=== PATIENT | male | born 1955 | race Caucasian/White ===

== ENCOUNTER 2024-09-04 11:52 | Inpatient (IN) | payer OTHER, SELFPAY ==
[2024-09-04] VITALS (20 sets, daily range): BP systolic 71–172; BP diastolic 60–92; BMI 26.7
--- NOTE | 2024-09-04 09:47 | ED.GENMED ---
History of Present Illness
<Nancy Johnson PA-C - Last Filed: 09/04/24 12:07>
General
Chief Complaint: Chest Pain
Source: patient
Exam Limitations: none
Time Seen by Provider: 09/04/24 09:39
History of Present Illness
History of Present Illness:
69yoM with no reported past medical history presenting for evaluation of chest pain. Patient has been having intermittent substernal chest pain over the past 2 days. Pain is described as burning. He had some worsening discomfort around 1 AM this
morning and checked in at [place] but ultimately left without being seen due to long wait times. An EKG was not performed. His pain became constant about 30 minutes prior to arrival while he was driving to his grandson's baseball game. He also
reports nausea, tingling in both of his arms, and diaphoresis. Patient was told that his cholesterol was borderline on his recent blood work. He does not take any prescription medications and denies any tobacco use. No prior history of heart
disease.
Past History
<Nancy Johnson PA-C - Last Filed: 09/04/24 12:07>
Past History
ED Past Medical History: Other (Sciatica)
ED Past Surgical History: None
Social History
Tobacco: Non-smoker
Alcohol: Occasional
Personal:
Living: with family
Phy Exam
<Nancy Johnson PA-C - Last Filed: 09/04/24 12:07>
General Physical Exam
General Presentation: moderate distress
General Skin: warm and diaphoretic
General Habitus: normal
General Mental: alert
ENT Exam
ENT Exam: normocephalic
Cardiovascular Exam
Cardiovascular Exam: regular rate/rhythm and normal peripheral pulses (2+ PT pulses bilaterally)
Pulmonary Exam
Pulmonary Exam: lungs clear, no respiratory distress, no rales, no crackles and no rhonchi
Neurological Exam
Neurological Exam: alert
[place] Coma Scale
Eye Opening: Spontaneous
Verbal Response: Oriented
Motor Response: Obeys Commands
GCS Total Score: 15
Skin Exam
Skin Exam: normal color and diaphoresis
Scores
<Nancy Johnson PA-C - Last Filed: 09/04/24 12:07>
Heart Score for Chest Pain Patients
STEMI patient?: Yes
Course
<Nancy Johnson PA-C - Last Filed: 09/04/24 12:07>
Orders/Labs/Results
Orders:
Orders
09/04/24 09:29
EKG [Electrocardiogram (*1)] Urgent
Reason for Study: Chest Pain
09/04/24 09:30
EKG- Treatment ONCE
09/04/24 09:45
Aspirin Chewable [Low Strength Aspirin] 324 mg PO NOW STA
09/04/24 09:46
Cardiac Monitoring- Treatment ONCE
CR Chest Portable - 1 View Urgent
Comment:
Reason For Exam: CP
Reason Study Needs to be Portable: Unable to Transport
09/04/24 09:47
Heparin 4,000 units IV NOW STA
Ticagrelor [Brilinta] 180 mg PO ONCE ONE
09/04/24 09:50
Heparin 5,000 units IV NOW STA
09/04/24 09:53
Complete Blood Count/With Diff Urgent
Comprehensive Metabolic Panel Urgent
NT-proBNP Urgent
PTT Urgent
Prothrombin Time Urgent
Troponin I Urgent
09/04/24 09:57
Ondansetron Injectable [Zofran] 4 mg .ROUTE .STK-MED ONE
09/04/24 09:58
NORepinephrine 4 MG/250 ML [Levophed] 4 mg in 250 ml .ROUTE .STK-MED
09/04/24 10:00
0.9% Sodium Chloride 1000 ml [Nss] 1,000 ml IV BOLUS
Ondansetron Injectable [Zofran] 4 mg IV NOW STA
09/04/24 10:09
Fentanyl Citrate/Pf [Sublimaze] 50 mcg IV NOW STA
09/04/24 10:14
Heparin 1000 Units/500 ml [Heparin] 1,000 units in 500 ml .ROUTE .STK-MED
Heparin Sodium,Porcine/Ns/Pf [Heparin 2000 Units/1000 ml] 2,000 unit in 1,000 ml .ROUTE .STK-MED
Lidocaine HCl/Pf [Xylocaine-Mpf 1% Vial] 100 mg .ROUTE .STK-MED ONE
Nitroglycerin [Tridil] 1,500 mcg .ROUTE .STK-MED ONE
Verapamil Injectable [Isoptin/Verapamil Injection] 5 mg .ROUTE .STK-MED ONE
09/04/24 10:18
Fentanyl Citrate/Pf [Sublimaze] 100 mcg .ROUTE .STK-MED ONE
Heparin 10,000 units .ROUTE .STK-MED ONE
Midazolam HCl [Versed] 2 mg .ROUTE .STK-MED ONE
09/04/24 10:58
Fentanyl Citrate/Pf [Sublimaze] 100 mcg .ROUTE .STK-MED ONE
09/04/24 11:01
Midazolam HCl [Versed] 2 mg .ROUTE .STK-MED ONE
09/04/24 11:04
Morphine Sulfate 2 mg .ROUTE .STK-MED ONE
09/04/24 11:10
Eptifibatide [Integrilin] 30 ml .ROUTE .STK-MED
09/04/24 11:11
EPTIFIBATIDE 75 mg/100 mL [Integrilin] 75,000 mcg in 100 ml .ROUTE .STK-MED
09/04/24 11:13
EPTIFIBATIDE 75 mg/100 mL [Integrilin] 75,000 mcg in 100 ml .ROUTE .STK-MED
Abnormal Lab Results
09/04/24 09/04/24 09/04/24
09:53 10:41 11:18
RBC 4.57 L 10^6/uL
(4.70-6.10)
MCV 97.4 H fL
(80.0-94.0)
MCH 33.9 H pg
(27.0-31.0)
Glucose 138 H mg/dl
(70-99)
Total Bilirubin 1.7 H mg/dl
(0.2-1.3)
Troponin I 0.263 H* ng/ml
POC ACT Low Range 276 H Seconds 300 H Seconds
(116-155) (116-155)
09/04/24 09:53
09/04/24 09:53
Vital Signs
Initial and Last Documented VS:
Initial Vital Signs
Temp Pulse Resp BP Pulse Ox
98.2 F 52 16 138/65 98
09/04/24 09:36 09/04/24 09:36 09/04/24 09:36 09/04/24 09:36 09/04/24 09:36
Last Documented Vital Signs
Temp Pulse Resp BP Pulse Ox
98.2 F 55 18 157/67 98
09/04/24 09:36 09/04/24 10:48 09/04/24 10:48 09/04/24 10:48 09/04/24 10:48
<Emiliano Garcia, DO - Last Filed: 09/04/24 10:05>
Orders/Labs/Results
Orders:
Orders
09/04/24 09:29
EKG [Electrocardiogram (*1)] Urgent
Reason for Study: Chest Pain
09/04/24 09:30
EKG- Treatment ONCE
09/04/24 09:45
Aspirin Chewable [Low Strength Aspirin] 324 mg PO NOW STA
09/04/24 09:46
Cardiac Monitoring- Treatment ONCE
CR Chest Portable - 1 View Urgent
Comment:
Reason For Exam: CP
Reason Study Needs to be Portable: Unable to Transport
09/04/24 09:47
Heparin 4,000 units IV NOW STA
Ticagrelor [Brilinta] 180 mg PO ONCE ONE
09/04/24 09:50
Heparin 5,000 units IV NOW STA
09/04/24 09:53
Complete Blood Count/With Diff Urgent
Comprehensive Metabolic Panel Urgent
NT-proBNP Urgent
PTT Urgent
Prothrombin Time Urgent
Troponin I Urgent
09/04/24 09:57
Ondansetron Injectable [Zofran] 4 mg .ROUTE .STK-MED ONE
09/04/24 09:58
NORepinephrine 4 MG/250 ML [Levophed] 4 mg in 250 ml .ROUTE .STK-MED
09/04/24 10:00
0.9% Sodium Chloride 1000 ml [Nss] 1,000 ml IV BOLUS
Ondansetron Injectable [Zofran] 4 mg IV NOW STA
09/04/24 10:09
Fentanyl Citrate/Pf [Sublimaze] 50 mcg IV NOW STA
09/04/24 10:14
Heparin 1000 Units/500 ml [Heparin] 1,000 units in 500 ml .ROUTE .STK-MED
Heparin Sodium,Porcine/Ns/Pf [Heparin 2000 Units/1000 ml] 2,000 unit in 1,000 ml .ROUTE .STK-MED
Lidocaine HCl/Pf [Xylocaine-Mpf 1% Vial] 100 mg .ROUTE .STK-MED ONE
Nitroglycerin [Tridil] 1,500 mcg .ROUTE .STK-MED ONE
Verapamil Injectable [Isoptin/Verapamil Injection] 5 mg .ROUTE .STK-MED ONE
09/04/24 10:18
Fentanyl Citrate/Pf [Sublimaze] 100 mcg .ROUTE .STK-MED ONE
Heparin 10,000 units .ROUTE .STK-MED ONE
Midazolam HCl [Versed] 2 mg .ROUTE .STK-MED ONE
09/04/24 10:58
Fentanyl Citrate/Pf [Sublimaze] 100 mcg .ROUTE .STK-MED ONE
09/04/24 11:01
Midazolam HCl [Versed] 2 mg .ROUTE .STK-MED ONE
09/04/24 11:04
Morphine Sulfate 2 mg .ROUTE .STK-MED ONE
09/04/24 11:10
Eptifibatide [Integrilin] 30 ml .ROUTE .STK-MED
09/04/24 11:11
EPTIFIBATIDE 75 mg/100 mL [Integrilin] 75,000 mcg in 100 ml .ROUTE .STK-MED
09/04/24 11:13
EPTIFIBATIDE 75 mg/100 mL [Integrilin] 75,000 mcg in 100 ml .ROUTE .STK-MED
Abnormal Lab Results
09/04/24 09/04/24 09/04/24
09:53 10:41 11:18
RBC 4.57 L 10^6/uL
(4.70-6.10)
MCV 97.4 H fL
(80.0-94.0)
MCH 33.9 H pg
(27.0-31.0)
Glucose 138 H mg/dl
(70-99)
Total Bilirubin 1.7 H mg/dl
(0.2-1.3)
Troponin I 0.263 H* ng/ml
POC ACT Low Range 276 H Seconds 300 H Seconds
(116-155) (116-155)
09/04/24 09:53
09/04/24 09:53
Vital Signs
Initial and Last Documented VS:
Initial Vital Signs
Temp Pulse Resp BP Pulse Ox
98.2 F 52 16 138/65 98
09/04/24 09:36 09/04/24 09:36 09/04/24 09:36 09/04/24 09:36 09/04/24 09:36
Last Documented Vital Signs
Temp Pulse Resp BP Pulse Ox
98.2 F 55 18 157/67 98
09/04/24 09:36 09/04/24 10:48 09/04/24 10:48 09/04/24 10:48 09/04/24 10:48
<Nancy Johnson PA-C - Last Filed: 09/04/24 12:07>
MDM/Problems Addressed
Differential Diagnosis Includes:
69yoM here with chest pain. 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 Associated with nausea. Appears diaphoretic on exam. VSS. Exam is otherwise reassuring with equal PT pulses bilaterally. Differential diagnosis
includes but is not limited to: ACS, angina, GERD, PE, consider aortic dissection
EKG obtained in triage shows ST elevations in inferior leads. EKG sent to interventional cardiology for review and STEMI alert activated. Labs, CXR, aspirin, Brilinta, and heparin ordered per protocol.
<Nancy Johnson PA-C - Last Filed: 09/04/24 12:07>
*EKG
Interpreted by ED Provider?: Yes
EKG Intrepretation Date: 09/04/24
Heart Rate: 53
Rate: bradycardiac
Rhythm: sinus
[place]: normal axis
Interval: normal interval
Ischemia: ST elevation (II, III, aVF)
*Critical Care Note
Total Time (30-74mins, 75-104mins- exclusive of procedures): 35
<Nancy Johnson PA-C - Last Filed: 09/04/24 12:07>
Update Note
Update Note:
Troponin elevated at 0.26. CXR is clear. Patient vomited during ED stay and transiently became hypotension. IV fluids started with improvement. HR in the 40-50 range. Daughter at bedside updated on care plan. Patient transported to solder making laborer with
nursing staff. Blood pressure stable at time of transport.
ED Attending Note
<Nancy Johnson PA-C - Last Filed: 09/04/24 12:07>
-
Portions of this chart may have been created with voice recognition software.� Occasional wrong word or��sound alike� substitutions may have occurred due to the inherent limitations of voice recognition software.
<Emiliano Garcia, DO - Last Filed: 09/04/24 10:05>
ED Attending Note
Patient seen and examined by attending physician: Yes
ED Attending Note:
I have reviewed and agree with history and treatment plan by Nancy Johnson PA-C. My exam revealed 69-year-old male in moderate distress. Intermittently with nausea and vomiting, and intermittent hypotension that did improved with IV fluids.
Reporting Consultant activated upon my viewing EKG. Discussed with Dr. Hargrove who agrees this is an inferior STEMI. Patient given heparin, 5000, aspirin 324, Brilinta 180. Patient will be taken emergently to Reporting Consultant.
Discharge Plan
Departure
Patient Disposition: [facility]
Date of Disposition: 09/04/24
Time of Disposition: 10:03
Admit to: grinding and polishing laborer
Presentation/result/management discussed w/ accepting MD/DO: Dr. Hargrove, security representative
Patient with high blood pressure during this ER visit?: No
Condition: Fair
Discharge Problem:
Acute ST elevation myocardial infarction (STEMI) of inferior wall
Interventions
Interventions:
*Risk Screen - Suicide Last Done: 09/04/24 09:36
*General Assessment Last Done: 09/04/24 09:50
*Neglect/Abuse Screening Last Done: 09/04/24 09:36
*ED- Fall Risk Assessment Last Done: 09/04/24 09:50
*ED COVID-19 Vaccine History Last Done: 09/04/24 09:50
*Nursing Disposition Last Done: 09/04/24 10:48
ED- Cardiac Assessment Last Done: 09/04/24 09:50
Discharge Date and Time
Discharge Date/Time: 09/04/24 10:25
--- NOTE | 2024-09-04 09:53 | EDRN ---
Patient with c/o mid sternal chest pain that started yesterday. Patient with c/o numbness in both arms. Denies SOB. +nausea. Patient medicated ASA 324 mg PO, Brilinta 180 mg PO and Heparin 5000 units IV.
[2024-09-04] MEDS: LOW STRENGTH ASPIRIN 324 MG PO (09:57)
[2024-09-04] MEDS: HEPARIN 5000 UNITS IV (09:58)
[2024-09-04] MEDS: BRILINTA 180 MG PO (09:58)
[2024-09-04] MEDS: NSS 1000 IV ×2 (10:00→13:03)
[2024-09-04] MEDS: ZOFRAN 4 MG IV (10:01)
[2024-09-04 10:04] LABS: % Basophils 0.5 % (0-2); % Eosinophils 1.9 % (0-6); % Immature Granulocytes 0.1 % (0-0.5); % Lymphocytes 32.8 % (20.5-51.1); % Monocytes 8.1 % (1.7-9.3); % Neutrophils 56.6 % (42.2-75.2); Absolute Eosinophils 0.1 10^3/uL (0-0.7); Absolute Lymphocytes 2.4 10^3/uL (1.2-3.4); Absolute Monocytes 0.6 10^3/uL (0.1-0.6); Absolute Neutrophils 4.2 10^3/uL (1.4-6.5); Hematocrit 44.5 % (39.0-52.0); Hemoglobin 15.5 g/dL (13.0-18.0); Mean Corp Hgb Conc. 34.8 g/dL (33.0-37.0); Mean Corpuscular Hgb 33.9 pg (27.0-31.0); Mean Corpuscular Volume 97.4 fL (80.0-94.0); Mean Platelet Volume 10.1 fL (7.4-10.4); Nucleated Red Blood Cells % 0 % (-); Platelet Count 185 10^3/uL (130-400); Red Blood Cell Count 4.57 10^6/uL (4.70-6.10); White Blood Cell Count 7.4 10^3/uL (4.8-10.8)
[2024-09-04 10:09] LABS: INR 0.91; PT 12.6 Sec (11.4-14.6)
[2024-09-04 10:10] LABS: APTT 24.6 Sec (23.4-35.0)
[2024-09-04 10:12] LABS: ALT (SGPT) 23 U/L (0-50); AST (SGOT) 26 U/L (17-59); Alkaline Phosphatase 75 U/L (38-126); Calcium 10.2 mg/dl (8.4-10.2); Carbon Dioxide 30 mmol/L (22-30); Chloride 104 mmol/L (98-107); Estimated Creatinine Clearance 82 ml/min; Glucose 138 mg/dl (70-99); Sodium 141 mmol/L (135-145); Total Protein 6.6 g/dl (6.3-8.2); eGFR > 60.00
[2024-09-04] MEDS: SUBLIMAZE 50 MCG IV (10:13)
--- NOTE | 2024-09-04 10:19 | EDRN ---
Report given to floating labor gang supervisor RN.
[2024-09-04 10:22] LABS: Blood Urea Nitrogen 14 mg/dl (9-20); Total Bilirubin 1.7 mg/dl (0.2-1.3)
--- NOTE | 2024-09-04 10:23 | HPS.HSE ---
Family Physician
-
Family Physician: Roddy Woods
Chief Complaint
-
Chest Pain.
History of Present Illness
69-year-old gentleman without significant past medical history presenting with chest pain. The patient has been experiencing study area and chest pain over the past 2 days. The chest pain became more persistent overnight and he presented to
[facility] around 1 AM. Due to technical errors, the patient was not able to undergo any diagnostic testing beyond basic vitals. An EKG was not performed per his report. The patient grew frustrated and his chest pain had started to
resolve. He left [facility] and returned home. This morning, while ambulating through the kitchen, he experienced another round of chest pain that again abated. He was driving to his [employer] baseball game when the chest pain
returned and became much more severe. Instead of proceeding to the baseball game, he elected to come to [facility]. In the emergency room, EKG showed inferior ST elevation myocardial infarction. Development Scientist was activated. He does have some
nausea and his chest pain remains.
Medical History
Past Medical History
Past Medical History: Reports None
Past Surgical History: Reports None
Social History
Tobacco: Non-smoker
Alcohol: Occasional
Drug: None
Personal:
Living: With Family
Employment: Retired
Family History
Family History: Not pertinent
Allergies / Home Medications
Allergies reflects when Allergies were last updated in [facility].
Home Medications with original date entered in [facility]
Allergy/Medication List:
Home medications:
None.
Allergies:
No known drug allergies.
Review of Systems
-
History Source: Patient and Family
A 12 point ROS was completed and negative except as noted: Yes
Constitutional: Reports No Symptoms
EENT: Reports No Symptoms
Respiratory: Reports See HPI
Cardiac: Reports Chest Pain
Abdomen/GI: Reports Nausea
: Reports No Symptoms
Neurological: Reports No Symptoms
Physical Exam
Vital Signs
Vital Signs
Temp Pulse Resp BP Pulse Ox
36.8 C 50 12 103/69 98
09/04/24 09:36 09/04/24 09:50 09/04/24 09:50 09/04/24 09:49 09/04/24 09:36
Physical Exam
General: Well Developed, Well Nourished, No Apparent Distress and Conversant
HEENT: NormoCephalic, Anicteric, Moist mucous membranes, Atraumatic, Good Dentition, PERRLA, Mayer Conjunctivae, No Ptosis, Nose Appears Normal and Ears Appear Normal
Respiratory: Clear and Non Labored Respirations
Cardiac: S1/S2 and Regular Rhythm
Breast: Deferred by me
GI: Soft, Non Tender, Non Distended, Normal Bowel Sounds and No Hepatosplenomegaly
Rectal: Deferred by Provider
Genito-urinary: Deferred by me
Musculoskeletal: No Clubbing, No Cyanosis and No Edema
Skin: Warm and Dry
Neuro: AO x 3
Hematologic/Lymphatic: No Lymphadenopathy
Psych: Calm and Intact Judgment/Insight
Laboratory Results
-
09/04/24 09:53
09/04/24 09:53
Laboratory Results
PT 12.6 Sec (11.4-14.6) 09/04/24 09:53
INR 0.91 09/04/24 09:53
APTT 24.6 Sec (23.4-35.0) 09/04/24 09:53
Total Bilirubin 1.7 mg/dl (0.2-1.3) H 09/04/24 09:53
AST 26 U/L (17-59) 09/04/24 09:53
ALT 23 U/L (0-50) 09/04/24 09:53
Alkaline Phosphatase 75 U/L (38-126) 09/04/24 09:53
Data Reviewed
-
Medical Tests (Nuc Med, Echo, EKG etc): Image Personally Visualized and interpreted, Report Reviewed by me, Discussed with Physician, Discussed with Patient and Discussed with Family
Lab Data: Labs Reviewed by me
Impression/Plan
-
Impression/Plan: 69-year-old male presenting with inferior ST elevation myocardial infarction.
#STEMI
-Acute, threat to life.
-Urgent cardiac catheterization with ad hoc PCI.
-Consent signed and on the chart.
-ASA/ticagrelor/heparin given in ER.
-Further instructions to follow.
[2024-09-04 10:24] LABS: NT-proBNP 1230 pg/ml; Troponin I 0.263 ng/ml
[2024-09-04 10:49] LABS: ACT-LR - POC 276 Seconds (116-155)
[2024-09-04 11:26] LABS: ACT-LR - POC 300 Seconds (116-155)
--- NOTE | 2024-09-04 11:54 | PTCARENOTE ---
Rec'd Pt from laboratory monitor A,A+Ox3, denies pain. R radial band in place, intact and dry. VSS.
--- NOTE | 2024-09-04 12:34 | ITS.CL.ANGIO ---
Manager Meeting - Angioplasty
Angioplasty
Procedure Report:
CARDIAC CATHETERIZATION REPORT
Date of Procedure: 09/04/2024
Referring: Emiliano Garcia D.O.
INDICATION: Inferior ST elevation myocardial infarction.
PROCEDURE:
1. Left heart catheterization.
2. Coronary angiography.
3. Successful PCI of the culprit distal RCA lesion.
4. Successful PCI of the significant proximal RCA lesion.
A total of 47 minutes of procedural/moderate sedation was utilized. An independent medical assistant per diem was present to assist with and help manage the patient's level of consciousness and physiologic status.
ACCESS:
1. 6 [place] right radial artery using modified Seldinger technique.
CATHETERS:
1. 5 [place]ian JR4.
2. 5 [place]amanian JL 3.5.
3. 6 [place]ian JR4 guiding catheter.
HEMODYNAMIC DATA
Weight (kg): 70.3
AO (s/d/x, mmHg): 148/77/105
LV (s/x mmHg): 151/16
LEFT VENTRICULOGRAPHY: Not performed.
CORONARY ANGIOGRAPHY
Dominance: Right.
Left Main: Normal size, bifurcating vessel. There is no coronary artery disease.
LAD: Normal size vessel giving rise to 1 significant diagonal. There is moderate, diffuse disease throughout the entire proximal and mid LAD. The vessel normalizes approximately 15 mm distal to the origin of the first diagonal. There is a 70%
lesion in the apical LAD.
Ramus: Congenitally absent.
Circumflex: Normal size, nondominant vessel giving rise to 2 obtuse marginals. OM1 is a substantial vessel that supplies the majority of the lateral wall. There is a 40% lesion in the proximal margin of OM1.
RCA: Large size, dominant vessel. There is an underappreciated, 70% lesion in the proximal RCA. There is a 50% lesion in the distal RCA at the crux followed by culprit, tandem 90% lesions in the distal RCA leading into the right posterolateral
branch with DAVON I flow. The RPDA is a small, sub-2 mm vessel.
INTERVENTION(S)
1. Successful PCI of the 60% distal RCA lesion and the culprit, tandem 90% distal RCA lesions (overlapping Medtronic Jakub Yell 2.5 x 38 MALISSA, 3.0 x 15 MALISSA, postdilated with a 2.5 NC balloon throughout and a three 3.0 NC balloon in the proximal
margin and overlap) with reduction in stenosis to 0%, restoring DAVON-3 flow.
2. Successful PCI of the 70% proximal RCA lesion (Medtronic Lorane Yell 3.5 x 38 MALISSA, postdilated with a 3.5 NC balloon) with reduction in stenosis to 0%, maintaining DAVON-3 flow).
Narrative:
The decision was made to proceed with percutaneous coronary intervention. The diagnostic catheter was removed over a wire and a 6Fr JR4 guiding catheter was advanced to the aortic root and seated in the right coronary artery. Additional heparin was
given and a Power Turn Flex wire was advanced into the large right posterolateral branch. The culprit, tandem 90% distal RCA lesions were predilated with a 2.0 x 12 semi-compliant balloon to 12 majo. The semi-compliant balloon was removed and a
Medtronic Jakub Yell 2.5 x 38 drug-eluting stent was advanced. Unfortunately, the stent would not proceed past the proximal RCA lesion. The stent was withdrawn and a 6 Guamanian GuideLiner was advanced over the 2.0 x 12 semicompliant balloon. We
took this opportunity to predilate the proximal RCA lesion, recognizing that we would need to treat it. The proximal 70% lesion was dilated to 12 majo. Unfortunately, the GuideLiner would still not advance beyond this lesion. The decision was made
to predilate more aggressively. A 3.0 x 12 semicompliant balloon was advanced and the proximal RCA was predilated to 12 majo and the GuideLiner was advanced into the mid RCA using a sheathing technique over the balloon. With the GuideLiner in
place, we were able to advance the stent with relative ease. Meticulous care was taken while positioning the stent, ensuring that the distal edge of the stent covered the most distal aspect of the lesions. The stent was deployed at 12 atmospheres.
The stent balloon was removed. Angiography confirmed that extension of the stented segment was necessary.
In the interim, a 2.5 x 20 NC balloon was advanced into the stented segment and the stent was postdilated to 16 majo. This noncompliant balloon was withdrawn. A 3.0 x 15 drug-eluting stent was advanced and positioned so that the distal edge of this
stent overlapped with the proximal margin of the deployed stent and covered the entire residual stenosis. The stent was deployed at 12 majo. The stent balloon was deflated then advanced into the overlap and reinflated to 12 majo for post dilation.
The noncompliant balloon was withdrawn. With the GuideLiner in place, a Medtronic 3.5 x 38 drug-eluting stent was advanced. The GuideLiner was pulled back, on sheathing the stent. Meticulous care was taken while positioning the stent, ensuring
that the entire atherosclerotic segment was covered. When we were satisfied with position, the stent was deployed at 12 majo. The stent balloon was withdrawn. A 3.5 x 20 noncompliant balloon was advanced, but would not advance into the stented
segment in spite of GuideLiner support in the proximal stent. The noncompliant balloon was withdrawn and the 3.0 x 12 semicompliant balloon was readvanced. The proximal stent was aggressively postdilated with a semicompliant balloon to 16 majo. We
took this opportunity to resheath the balloon with the GuideLiner, allowing for movement of the GuideLiner beyond the mid stent and into the mid RCA. The semicompliant balloon was withdrawn and the noncompliant balloon was advanced with relative
ease. The GuideLiner was withdrawn and the stent was postdilated to 15 atmospheres in the distal margin and 18 majo in the midportion and proximal stent. Angiography was performed in orthogonal views, confirming good stent expansion and an
excellent angiographic result. The coronary wire was withdrawn and the guide was disengaged from the artery. The catheter was removed over a standard J-wire.
Closure Device: Vascular band.
Radiation (mGy): 821.81
DAP (cm2.Gy): 77.1205
Fluoroscopy time (minutes): 14.8
CONCLUSIONS
1. Right dominant circulation with moderate diffuse disease in the entire proximal and mid LAD that normalizes 15 mm distal to the origin of D1, 40% lesion in the proximal margin of OM1 and underappreciated 70% lesion in the proximal RCA status
post successful PCI (Medtronic Jakub Yell 3.5 x 38 MALISSA, postdilated with a 3.5 NC balloon), a 60% lesion in the distal RCA followed by culprit, tandem 90% lesions, status post successful PCI (overlapping Medtronic Lorane Yell 2.5 x 38 MALISSA, 3.0
x 15 MALISSA, postdilated with a 2.5 NC balloon throughout and a three 3.0 NC balloon in the proximal margin and overlap) with reduction in all stenoses to 0%, restoring DAVON-3 flow.
2. Mildly elevated filling pressures (LVEDP = 16 mmHg at 70.3 kg).
RECOMMENDATIONS:
1. Expectant management after cardiac catheterization via right radial approach.
2. Limited weight bearing on the right wrist for one week.
3. Dual antiplatelet therapy with aspirin and ticagrelor for at least 12 months, followed by aspirin indefinitely.
4. Given the patient's episode of vomiting in the emergency room after medication administration, we will maintain eptifibatide for 18 hours to ensure adequate platelet inhibition.
5. Aggressive secondary prevention with high-dose, high potency statin.
6. OMT/GDMT as hemodynamics will tolerate.
7. Echocardiogram ordered and pending.
8. Referral to cardiac rehab.
Copy to: Giancarlo Hargrove D.O.
Giancarlo Hargrove, , FACC, FACP
[2024-09-04] MEDS: LIPITOR 40 MG PO (17:13)
[2024-09-04] MEDS: TYLENOL 650 MG PO (17:19)
--- NOTE | 2024-09-04 17:56 | PTCARENOTE ---
Pt c/o L chest pain, rated 2 -10, reproducible on palpation. Pt believes its muscular, after moving a heavy refrigerator a few days ago. Med with Tylenol 650mg as ordered.
[2024-09-04] MEDS: INTEGRILIN 100 IV (18:08)
--- NOTE | 2024-09-04 19:06 | PTCARENOTE ---
Pt's pain initially unrelieved after Tylenol, Pt then c/o nausea. Trop result 24.4. Dr Hargrove notified of pain, nausea and trop. EKG ordered and done. Pt then said his CP was gone but still very nauseous. Dr Hargrove aware, will order Zofran. Upon
rechecking Pt again, he had vomited approx 1000 ml liquid and undigested food. He is no longer nauseated.
[2024-09-04] MEDS: BRILINTA 90 MG PO (21:06)
[2024-09-05] VITALS (7 sets, daily range): BP systolic 120–139; BP diastolic 63–78; BMI 26.5
[2024-09-05] MEDS: INTEGRILIN 100 IV (03:39)
[2024-09-05 06:48] LABS: Hemoglobin 13.1 g/dL (13.0-18.0); Mean Corp Hgb Conc. 34.5 g/dL (33.0-37.0); Mean Corpuscular Hgb 34.3 pg (27.0-31.0); Mean Corpuscular Volume 99.5 fL (80.0-94.0); Mean Platelet Volume 10.5 fL (7.4-10.4); Platelet Count 156 10^3/uL (130-400); Red Blood Cell Count 3.82 10^6/uL (4.70-6.10); Red Cell Dist. Width 12.2 % (11.5-14.5)
[2024-09-05 07:14] LABS: Blood Urea Nitrogen 9 mg/dl (9-20); Calcium 9.2 mg/dl (8.4-10.2); Carbon Dioxide 26 mmol/L (22-30); Chloride 107 mmol/L (98-107); Estimated Creatinine Clearance 82 ml/min; Glucose 97 mg/dl (70-99); Potassium 3.9 mmol/L (3.5-5.1); Sodium 141 mmol/L (135-145); eGFR > 60.00
[2024-09-05] MEDS: BRILINTA 90 MG PO (08:22)
[2024-09-05 09:09] LABS: Glycohemoglobin (HgbA1c) 4.9 % (4.0-5.6)
[2024-09-05] MEDS: COZAAR 25 MG PO (11:05)
[2024-09-05] MEDS: LOW STRENGTH ASPIRIN 81 MG PO (11:07)
--- NOTE | 2024-09-05 13:09 | W.PN.CD ---
Today's Communication / Plan
-
Echocardiogram.
Convert to clopidogrel.
Rehab referral.
Discharge planning.
Impression / Plan
-
Impression/Plan: 69-year-old male presenting with inferior ST elevation myocardial infarction.
#STEMI
-Acute, threat to life.
-S/P cardiac catheterization and PCI of culprit tandem 90% dRCA lesions (overlapping [employer] [place] 2.5 x 38 MALISSA, 3.0 x 15 MALISSA, postdilated with a 2.5 NC balloon throughout and a three 3.0 NC balloon in the proximal margin and overlap) and
angiographically significant 70% pRCA lesions ([employer] [place] 3.5 x 38 MALISSA, postdilated with a 3.5 NC balloon).
-Troponin peaked at 27.7.
-Eptifabitide gtt due to some vomiting in ER leading to uncertainty as to whether he absorbed his ticagrelor loading dose.
-Ticagrelor is cost prohibitive. Clopidogrel load tomorrow morning, then DAPT with ASA 81 and clopidogrel 75 mg daily for one year, followed by aspirin indefinitely.
-OMT/GDMT as hemodynamics will permit.
-Secondary prevention with high dose, high potency statin.
-Echocardiogram ordered/pending.
-Referral to cardiac rehab.
#PPx
-SCD's for DVT/VTE.
-No role for PPI at this time.
#Dispo
-IVU status.
-Full code.
-Discharge planning.
Subjective/Interval History:
PCI for STEMI yesterday.
Some chest pain/nausea overnight with improving EKG.
Chest pain resolved.
The patient vomiting with resolution of nausea.
DATA:
Cardiac Catheterization/PCI, 09/04/2024:
CONCLUSIONS
1. Right dominant circulation with moderate diffuse disease in the entire proximal and mid LAD that normalizes 15 mm distal to the origin of D1, 40% lesion in the proximal margin of OM1 and underappreciated 70% lesion in the proximal RCA status
post successful PCI ([employer] [place] 3.5 x 38 MALISSA, postdilated with a 3.5 NC balloon), a 60% lesion in the distal RCA followed by culprit, tandem 90% lesions, status post successful PCI (overlapping [employer] [place] 2.5 x 38 MALISSA, 3.0
x 15 MALISSA, postdilated with a 2.5 NC balloon throughout and a three 3.0 NC balloon in the proximal margin and overlap) with reduction in all stenoses to 0%, restoring DAVON-3 flow.
2. Mildly elevated filling pressures (LVEDP = 16 mmHg at 70.3 kg).
Physical Exam
Vital Signs/Labs
Vital Signs
Temp Pulse Resp BP Pulse Ox
36.9 C 62 16 136/64 97
09/05/24 11:52 09/05/24 11:06 09/05/24 11:52 09/05/24 11:06 09/05/24 11:52
09/04/24 09/05/24 09/06/24
11:59 11:59 11:59
Actual Weight 70.5 kg 69.9 kg
09/05/24 06:29
09/05/24 06:29
PT 12.6 Sec (11.4-14.6) 09/04/24 09:53
INR 0.91 09/04/24 09:53
APTT 24.6 Sec (23.4-35.0) 09/04/24 09:53
09/04/24
09:53
Vpi-A-Mjawobexsrn Pept 1230
LAB Results
09/04/24 09/04/24 09/04/24
09:53 12:30 17:55
Troponin I 0.263 H* Cancelled 24.400 H*
09/05/24 09/05/24
00:51 06:29
Troponin I 27.700 H* 18.900 H* D
Physical Exam
Constitutional: No acute distress and Comfortable
EENT: Anicteric and Moist mucous membranes
Cardiovascular: Rhythm & rate is regular, Pedal edema is absent, JVD pressure is normal, S1S2 is normal and Murmur/rub/gallop absent
Respiratory: Respiratory effort normal, Lungs clear to auscul., Wheeze Absent, Crackles Absent and Rhonchi Absent
GI: Soft, Distention absent, Flat, Non tender and Normal bowel sounds
Neuro/Psych: AO x 3
Other: Cath Site (Right radial access site is C/D/I.)
Data Reviewed
-
Date of Service: September 05, 2024
Medical Decision Making: Reviewed Test Results, Independent Historian Assessment and Test Interpretation
EKG: Tracing Personally Visualized and interpreted and Report Reviewed by me
Echo: Ordered by me
X-Ray/CT/US/MRI/NUC/PET: Image Personally Visualized and interpreted and Report Reviewed by me
Medical Tests (PFT, Pathology etc): Image Personally Visualized and interpreted and Report Reviewed by me
Labs: Labs Reviewed by me
Old Records: Reviewed
--- NOTE | 2024-09-05 17:01 | CM ---
spoke to pt in room, he is prev indep, lives with his sedrick 2 story homewith a first floor set up and 1 step to enter. he has a cane at home to use if needed. plan is for dc to home when medically stable.
[2024-09-05] MEDS: LIPITOR 40 MG PO (17:27)
[2024-09-05 19:57] LABS: Hepatitis C Antibody Negative (Negative)
[2024-09-06 03:50] VITALS: BP 148/73
[2024-09-06 04:30] LABS: Hematocrit 38.1 % (39.0-52.0); Mean Corp Hgb Conc. 34.1 g/dL (33.0-37.0); Mean Corpuscular Hgb 34.3 pg (27.0-31.0); Mean Corpuscular Volume 100.5 fL (80.0-94.0); Mean Platelet Volume 10.7 fL (7.4-10.4); Platelet Count 151 10^3/uL (130-400); Red Blood Cell Count 3.79 10^6/uL (4.70-6.10); White Blood Cell Count 7.2 10^3/uL (4.8-10.8)
--- NOTE | 2024-09-06 04:42 | PTCARENOTE ---
Pt NSR on monitor. VSS. Denies chest pain or any discomfort. ambulates independently in the room
[2024-09-06 04:57] LABS: Blood Urea Nitrogen 14 mg/dl (9-20); Calcium 8.8 mg/dl (8.4-10.2); Carbon Dioxide 24 mmol/L (22-30); Chloride 109 mmol/L (98-107); Estimated Creatinine Clearance 82 ml/min; Glucose 99 mg/dl (70-99); HDL Cholesterol 39 mg/dl; LDL Cholesterol, Calculated 73 mg/dl; Potassium 4.1 mmol/L (3.5-5.1); Sodium 141 mmol/L (135-145); Total Cholesterol 135 mg/dl (50-199); Triglyceride 116 mg/dl (10-149); Very Low Density Lipoprotein 23 mg/dl (0-30); eGFR > 60.00
[2024-09-06 06:00] VITALS: BMI 26.4
[2024-09-06] MEDS: PLAVIX 600 MG PO (06:39)
[2024-09-06 06:55] VITALS: BP 123/67
--- NOTE | 2024-09-06 08:58 | W.PN.CD ---
Today's Communication / Plan
-
discharge planning
ASA 81mg daily, Plavix 75mg daily, Toprol XL 12.5mg daily, losartan 50mg daily, atorvastatin 40mg daily
Impression / Plan
-
Impression/Plan: 69-year-old male presenting with inferior ST elevation myocardial infarction.
#STEMI
-S/P cardiac catheterization and PCI of culprit tandem 90% dRCA lesions (overlapping [employer] [place] 2.5 x 38 MALISSA, 3.0 x 15 MALISSA, postdilated with a 2.5 NC balloon throughout and a three 3.0 NC balloon in the proximal margin and overlap) and
angiographically significant 70% pRCA lesions ([employer] [place] 3.5 x 38 MALISSA, postdilated with a 3.5 NC balloon).
-echo: EF 55-60%, inferior HK, mild/mod AR
-no coverage for brilinta
-ASA, Plavix, Toprol XL, losartan
#Brief SVT
-no sxs, on tele
-low dose beta dhiraj, with sinus rate 60s
#PPx
-SCD's for DVT/VTE.
-No role for PPI at this time.
#Dispo
-Discharge planning.
DATA:
Cardiac Catheterization/PCI, 09/04/2024:
CONCLUSIONS
1. Right dominant circulation with moderate diffuse disease in the entire proximal and mid LAD that normalizes 15 mm distal to the origin of D1, 40% lesion in the proximal margin of OM1 and underappreciated 70% lesion in the proximal RCA status
post successful PCI ([employer] [place] 3.5 x 38 MALISSA, postdilated with a 3.5 NC balloon), a 60% lesion in the distal RCA followed by culprit, tandem 90% lesions, status post successful PCI (overlapping [employer] [place] 2.5 x 38 MALISSA, 3.0
x 15 MALISSA, postdilated with a 2.5 NC balloon throughout and a three 3.0 NC balloon in the proximal margin and overlap) with reduction in all stenoses to 0%, restoring DAVON-3 flow.
2. Mildly elevated filling pressures (LVEDP = 16 mmHg at 70.3 kg).
Physical Exam
Vital Signs/Labs
Vital Signs
Temp Pulse Resp BP Pulse Ox
98.1 F 57 16 148/73 93
09/06/24 06:55 09/06/24 06:55 09/06/24 06:55 09/06/24 03:50 09/06/24 06:55
09/05/24 09/06/24 09/07/24
06:59 06:59 06:59
Actual Weight 69.9 kg 69.6 kg
09/06/24 04:06
09/06/24 04:06
PT 12.6 Sec (11.4-14.6) 09/04/24 09:53
INR 0.91 09/04/24 09:53
APTT 24.6 Sec (23.4-35.0) 09/04/24 09:53
Triglycerides 116 mg/dl (10-149) 09/06/24 04:06
LDL Cholesterol, Calc 73 mg/dl 09/06/24 04:06
VLDL Cholesterol, Calc 23 mg/dl (0-30) 09/06/24 04:06
HDL Cholesterol 39 mg/dl 09/06/24 04:06
09/04/24
09:53
Qvf-F-Zjotkzkvztz Pept 1230
LAB Results
09/04/24 09/04/24 09/04/24
09:53 12:30 17:55
Troponin I 0.263 H* Cancelled 24.400 H*
09/05/24 09/05/24
00:51 06:29
Troponin I 27.700 H* 18.900 H* D
Physical Exam
Constitutional: No acute distress and Comfortable
EENT: Moist mucous membranes
Cardiovascular: Rhythm & rate is regular, Pedal edema is absent, JVD pressure is normal and Systolic murmur absent
Respiratory: Respiratory effort normal and Lungs clear to auscul.
Neuro/Psych: AO x 3
Data Reviewed
-
Date of Service: September 06, 2024
EKG: Other (SR, brief SVT)
Labs: Labs Reviewed by me
--- NOTE | 2024-09-06 09:00 | PTCARENOTE ---
Pt SR on the monitor. Education on new meds given and verbalizes understanding. Denies chest pain or any discomfort. VSS.
[2024-09-06] MEDS: TOPROL XL 12.5 MG PO (09:24)
[2024-09-06] MEDS: LOW STRENGTH ASPIRIN 81 MG PO (09:25)
[2024-09-06] MEDS: COZAAR 50 MG PO (09:25)
[2024-09-06 09:26] VITALS: BP 124/74
[2024-09-06] MEDS: COZAAR PO (09:28)
[2024-09-06 11:22] VITALS: BP 119/66
--- NOTE | 2024-09-06 13:38 | W.DS.TRANS ---
DC Summary - [facility]
-
Discharge Instructions:
Discharge Diagnosis/Procedures STEMI, s/p angioplasty and stent x3 to Right
Coronary artery
Diet Low Cholesterol
Driving Restrictions No driving for 24 hours
Other Services Cardiac Rehab
Instructions:
Stand-Alone Forms: DC Instructions- Cath/EP Lab
Changes to Home Medications: Yes
Discharge Medications:
DC Medications w/original date entered in What's in My Handbag
[id number] 300 mcg-K 60 mcg-lycop 600 mcg-lutein 300 mcg tablet (Centrum Silver Men) 1 tab PO DAILY 09/04/24
aspirin 81 mg chewable tablet 81 mg PO DAILY #1 tab 09/06/24
atorvastatin 40 mg tablet 40 mg PO QPM #90 tabs 09/06/24
clopidogrel 75 mg tablet 75 mg PO DAILY #90 tabs 09/06/24
losartan 50 mg tablet 50 mg PO DAILY #90 tabs 09/06/24
metoprolol succinate 25 mg tablet,extended release 24 hr 12.5 mg (1/2 x 25 mg) PO DAILY #90 tabs 09/06/24
nitroglycerin 0.4 mg sublingual tablet 0.4 mg sublingual [id number] PRN chest pain #25 tabs 09/06/24
Home Medication Changes
All new except MVI
Pending Results: No
== END 2024-09-06 13:47 | disposition home or self-care (01) | DRG 322 ==
LOC: IVU 11:52
PROVIDERS: Nurse Practitioner Family; Physician Assistant; ADMITTING PHYSICIAN Internal Medicine Cardiovascular Disease; EMERGENCY PHYSICIAN Emergency Medicine; FAMILY PHYSICIAN Family Medicine
PROC: 4A023N7 Measurement of Cardiac Sampling and Pressure, Left Heart, Percutaneous Approach (ICD-10-PCS; 2024-09-04)
PROC: 027035Z Dilation of Coronary Artery, One Artery with Two Drug-eluting Intraluminal Devices, Percutaneous Approach (ICD-10-PCS; 2024-09-04)
PROC: B2111ZZ Fluoroscopy of Multiple Coronary Arteries using Low Osmolar Contrast (ICD-10-PCS; 2024-09-04)
DX: I21.11 ST elevation (STEMI) myocardial infarction involving right coronary artery (principal); I47.10 Supraventricular tachycardia, unspecified; I25.10 Atherosclerotic heart disease of native coronary artery without angina pectoris; I95.9 Hypotension, unspecified
CPT/HCPCS: 71045; 80048; 80053; 80061; 83036; 83880; 84484; 85025; 85027; 85347; 85610; 85730; 86803; 93005; 93306; 93458; 96361; 96374; 96375; 99291; C1725; C1769; C1874; C1894; C9606; J1327; Q9967

== ENCOUNTER → 2025-04-21 13:35 | Outpatient (REF) | payer OTHER, SELFPAY | LOC: HWRCS 13:35 | PROVIDERS: ATTENDING PHYSICIAN Internal Medicine Cardiovascular Disease; FAMILY PHYSICIAN Family Medicine | DX: I21.19 ST elevation (STEMI) myocardial infarction involving other coronary artery of inferior wall (principal); I25.10 Atherosclerotic heart disease of native coronary artery without angina pectoris; Z95.5 Presence of coronary angioplasty implant and graft; I10 Essential (primary) hypertension | CPT/HCPCS: 93306 ==